=== PATIENT | male | born 1980 | race African-American/Black ===

== ENCOUNTER 2017-10-27 23:04 | Emergency (ER) | payer SELFPAY ==
[~2017-10-27] VITALS: Ht 190.5 cm; Wt 90.7 kg
[2017-10-28] MEDS ORDERED: IBUPROFEN 600MG TABLET PO ONE (02:30)
[2017-10-28 02:59] LABS: CLARITY URINE CLEAR (CLEAR); COLOR URINE YELLOW (YELLOW); KETONES URINE TRACE (NEGATIVE); LEUKOCYTE ESTERASE URINE 1+ (NEGATIVE); NITRITE URINE NEGATIVE (NEGATIVE); OCCULT BLOOD URINE NEGATIVE (NEGATIVE); PROTEIN URINE NEGATIVE (NEGATIVE)
[2017-10-28 03:51] VITALS: BP 115/69
== END 2017-10-28 03:52 | disposition home or self-care (01) ==
LOC: ER 23:04
DX: N30.00 Acute cystitis without hematuria (principal); M25.551 Pain in right hip; R30.0 Dysuria
CPT/HCPCS: 81003; 87086; 99284

== ENCOUNTER 2024-06-25 21:59 | Emergency (ER) | payer OTHER ==
[~2024-06-25] VITALS: Ht 190.5 cm; Wt 100.0 kg
[2024-06-25 22:26] VITALS: BP 133/93; TEMP 36.9; O2SAT 100
[2024-06-25 22:35] VITALS: PULSE 86; RESP 16; O2SAT 98
[2024-06-25 23:43] LABS: CLARITY URINE CLEAR (CLEAR); COLOR URINE YELLOW (YELLOW); GLUCOSE URINE NEGATIVE (NEGATIVE); KETONES URINE NEGATIVE (NEGATIVE); LEUKOCYTE ESTERASE URINE NEGATIVE (NEGATIVE); NITRITE URINE NEGATIVE (NEGATIVE); OCCULT BLOOD URINE NEGATIVE (NEGATIVE); PROTEIN URINE NEGATIVE (NEGATIVE); SPECIFIC GRAVITY URINE 1.021 (1.005-1.030); UROBILINOGEN URINE 0.2 E.U./dL (0.2-1.0)
[2024-06-26] MEDS ORDERED: CEFTRIAXONE SODIUM 500MG VIAL IM ONE (02:00)
[2024-06-30 05:09] LABS: CHLAMYDIA TRACHOMATIS NAA Negative (Negative); NEISSERIA GONORRHOEAE NAA Negative (Negative)
== END 2024-06-26 03:48 | disposition left against medical advice (07) ==
LOC: ER 21:59
DX: R30.0 Dysuria (principal); N48.89 Other specified disorders of penis; Z53.21 Procedure and treatment not carried out due to patient leaving prior to being seen by health care provider
CPT/HCPCS: 81003; 87491; 87591